=== PATIENT | male | born 1990 | race Caucasian/White ===

== ENCOUNTER 2020-06-18 05:17 | Inpatient (IN) | payer SELFPAY ==
[~2020-06-18] VITALS: Ht 175.3 cm; Wt 62.6 kg
[2020-06-18] MEDS ORDERED: SODIUM CHLORIDE 0.9% 1000ML 1,000 ML IV ONE (05:58)
[2020-06-18] MEDS ORDERED: LORAZEPAM 2 MG/ML 1 ML VIAL ONE ×3 (06:02→06:46)
[2020-06-18 06:25] LABS: BASOPHILS % (AUTO) 0.9 % (0.0-5.0); EOSINOPHILS % (AUTO) 0.2 % (0.0-8.0); HEMATOCRIT 51.4 % (42-54); LYMPHOCYTES % (AUTO) 26.2 % (21.0-51.0); MEAN CORPUSCULAR HEMOGLOBIN 33.6 pg (27.0-33.0); MEAN CORPUSCULAR HGB CONC 33.1 g/dL (32.0-36.0); MEAN CORPUSCULAR VOLUME 101.6 fL (79-99); MONOCYTES % (AUTO) 8.7 % (3.0-13.0); NUCLEATED RED BLOOD CELLS 0.3 % (0.0-0.19); PLATELET COUNT (AUTO) 271 K/uL (130-400); RED BLOOD CELL COUNT(AUTO) 5.06 MIL/uL (4.50-6.20); RED CELL DISTRIBUTION WIDTH 12.3 % (11.0-15.5); WHITE BLOOD COUNT (AUTO) 13.2 K/uL (4.8-10.8)
[2020-06-18 06:27] LABS: APPEARANCE,URINE CLEAR (CLEAR); BILIRUBIN,URINE NEGATIVE (NEGATIVE); COLOR,URINE YELLOW (YELLOW); GLUCOSE, URINE (UA) NEGATIVE (NEGATIVE); KETONES,URINE >=80 mg/dL (NEGATIVE); LEUKOCYTE ESTERASE ,URINE NEGATIVE (NEGATIVE); NITRATE,URINE NEGATIVE (NEGATIVE); OCCULT BLOOD,URINE TRACE-INTACT (NEGATIVE); PH,URINE 5.5 (5.0-8.0); PROTEIN,URINE 30 mg/dL (NEGATIVE); UROBILINOGEN,URINE 0.2 mg/dL (0.2-1.0)
[2020-06-18 06:27] LABS: ABG OXYGEN SATURATION 90.5 % (95.0-99.0); BASE EXCESS,VENOUS BLOOD GAS -25.7 (-2.0-3.0); HCO3,VENOUS BLOOD GAS 6.1 (21.0-28.0); PCO2,VENOUS BLOOD GAS 30 (35-48); PH,VENOUS BLOOD GAS < 6.960 (7.350-7.450)
[2020-06-18 06:36] LABS: AMPHET/METH SCREEN,URINE NEGATIVE (NEGATIVE); BARBITURATE SCREEN, URINE NEGATIVE (NEGATIVE); BENZODIAZEPINES SCREEN,URINE NEGATIVE (NEGATIVE); CANNABINOID SCREEN,URINE NEGATIVE (NEGATIVE); COCAINE SCREEN,URINE NEGATIVE (NEGATIVE); OPIATE SCREEN,URINE NEGATIVE (NEGATIVE); PHENCYCLIDINE SCREEN,URINE NEGATIVE (NEGATIVE)
[2020-06-18 06:43] LABS: ALBUMIN 5.1 g/dL (3.5-5.0); BILIRUBIN,TOTAL 0.8 mg/dL (0.2-1.0); CREATININE 1.5 mg/dL (0.5-1.5); POTASSIUM 3.5 mmol/L (3.5-5.1); TOTAL PROTEIN, SERUM 9.7 g/dL (6.0-8.3)
[2020-06-18 07:26] LABS: BACTERIA,URINE Few /HPF (None Seen); MUCUS,URINE Few LPF (None Seen); RBC,URINE 0-1 /HPF (0-1); SQUAMOUS EPITHELIAL CELL,UR Rare /HPF (0-2)
[2020-06-18 07:27] LABS: HYALINE CASTS, URINE 0-1 /LPF (0-1 /LPF)
[2020-06-18] MEDS ORDERED: LORAZEPAM 2 MG/ML 1 ML VIAL IVP PRN ×2 (07:45)
[2020-06-18] MEDS: LACTATED RINGERS 1000ML 1,000 ML IV SCH ×3 (07:45→20:36)
[2020-06-18] MEDS ORDERED: LACTATED RINGERS 1000ML 1,000 ML IV ONE ×2 (08:51→10:43)
[2020-06-18] MEDS ORDERED: DIAZEPAM 5 MG/ML 2 ML SYG ONE ×2 (09:52→09:56)
[2020-06-18] MEDS ORDERED: THIAMINE HCL 100 MG/ML 2ML VIAL IVP SCH (10:30)
[2020-06-18] MEDS: SERTRALINE HCL 50 MG TABLET PO SCH (10:30)
[2020-06-18] MEDS: CLONIDINE HCL 0.1 MG TABLET PO SCH ×3 (10:30→22:30)
[2020-06-18] MEDS: DIAZEPAM 5 MG/ML 2 ML SYG IVP SCH ×3 (12:00→23:44)
[2020-06-18 12:06] LABS: CREATINE KINASE, TOTAL 257 U/L (21-232); THYROID STIMULATING HORMONE 2.38 uIU/mL (0.36-3.74)
[2020-06-18 12:07] LABS: SALICYLATE < 2.8 mg/dL (2.8-20.0)
[2020-06-18] MEDS ORDERED: SERTRALINE HCL 50 MG TABLET ONE (12:25)
--- NOTE | 2020-06-18 13:00 | NUR ---
ARRIVAL TO ROOM DPT 15 PT IS AAOX3 DENIES CP DENIES SOB DENIES NV NO COMPLAINTS. ARRIVED WITH ORDERS. CALL LIGHT WITHIN REACH.
[2020-06-18] MEDS ORDERED: ALPR0.5T8 PO (14:07)
[2020-06-18] MEDS ORDERED: SERT100T PO (14:07)
[2020-06-18 15:00] VITALS: BP 134/96
--- NOTE | 2020-06-18 17:26 | NUR ---
STATUS PT IS AAOX3 NO COMPLAINTS AT THIS TIME. DENIES PAIN DENIES TREMORS. CALL LIGHT WITHIN REACH.
[2020-06-18 20:00] VITALS: BP 126/82
[2020-06-19] VITALS (7 sets, daily range): BP systolic 93–136; BP diastolic 54–95
[2020-06-19 03:36] LABS: ABG BASE EXCESS 0.2 mmol/L (-2.0-3.0); ABG HCO3 24.7 mmol/L (21.0-28.0); ABG OXYGEN SATURATION 97.2 % (95.0-99.0); ABG PCO2 40 mmHg (35-48)
[2020-06-19 04:27] LABS: HEMATOCRIT 38.5 % (42-54); MEAN CORPUSCULAR HEMOGLOBIN 33.8 pg (27.0-33.0); MEAN CORPUSCULAR HGB CONC 35.1 g/dL (32.0-36.0); MEAN CORPUSCULAR VOLUME 96.5 fL (79-99); RED BLOOD CELL COUNT(AUTO) 3.99 MIL/uL (4.50-6.20); RED CELL DISTRIBUTION WIDTH 12.3 % (11.0-15.5)
[2020-06-19] MEDS: CLONIDINE HCL 0.1 MG TABLET PO SCH ×4 (04:30→21:12)
[2020-06-19] MEDS: DIAZEPAM 5 MG/ML 2 ML SYG IVP SCH ×3 (06:29→18:10)
[2020-06-19 07:07] LABS: CREATINE KINASE, TOTAL 357 U/L (21-232); MYOGLOBIN 68 ng/mL (10-92); PHOSPHORUS 3.2 mg/dL (2.5-4.9); TROPONIN I < 0.04 ng/mL (0.00-0.06)
[2020-06-19 07:23] LABS: SALICYLATE < 2.8 mg/dL (2.8-20.0)
[2020-06-19] MEDS: M.V.I. IV [ADULT] 10 ML, FOLIC ACID 1 MG, THIAMINE HCL 100 MG in SODIUM CHLORIDE 0.9% 1... IV SCH (09:00)
[2020-06-19] MEDS: ENOXAPARIN SODIUM 40 MG/0.4 ML SYRINGE SQ SCH (09:27)
[2020-06-19] MEDS: SERTRALINE HCL 50 MG TABLET PO SCH (09:27)
--- NOTE | 2020-06-19 12:44 | NUR ---
cm note pt resides at home alone, state is independent with ambulation and adls, pt drives. states he does take medication for anxiety as ordered by his MD dr Cyrus osuna. states feels safe to return back home at time of dc. states no dc needs. provided next of patrice benton # who resides in [facility], Fanny Levine [phone]. Addendum: 06/19/20 at 1249 by RIMA YOUNGER Amended: Links added.
[2020-06-19] MEDS ORDERED: POTASSIUM CHLORIDE 20MEQ/100ML 100 ML IV PRN (13:45)
[2020-06-19] MEDS ORDERED: POTASSIUM CHLORIDE 10% ELIXIR 20 MEQ/15 ML UDCUP PO PRN (13:45)
[2020-06-19] MEDS ORDERED: LIDOCAINE HCL-MPF 1% 2ML VIAL IV PRN (13:45)
[2020-06-19] MEDS ORDERED: HYDROCODONE/ACETAMINOPHEN 5/325 MG TAB PO PRN (13:45)
[2020-06-19] MEDS: CYPROHEPTADINE HCL 4 MG TAB PO SCH ×2 (14:32→21:12)
[2020-06-19] MEDS: LACTATED RINGERS 1000ML 1,000 ML IV SCH ×2 (14:32→23:45)
[2020-06-19] MEDS: TOPIRAMATE 25 MG TABLET PO SCH (21:12)
[2020-06-20] MEDS: DIAZEPAM 5 MG/ML 2 ML SYG IVP SCH ×4 (03:04→18:27)
[2020-06-20] MEDS: CYPROHEPTADINE HCL 4 MG TAB PO SCH ×4 (03:04→21:43)
[2020-06-20 03:32] VITALS: BP 94/57
[2020-06-20 04:11] LABS: MEAN CORPUSCULAR HEMOGLOBIN 33.7 pg (27.0-33.0); MEAN CORPUSCULAR HGB CONC 34.9 g/dL (32.0-36.0); MEAN CORPUSCULAR VOLUME 96.6 fL (79-99); RED BLOOD CELL COUNT(AUTO) 3.83 MIL/uL (4.50-6.20); RED CELL DISTRIBUTION WIDTH 12.1 % (11.0-15.5); WHITE BLOOD COUNT (AUTO) 3.8 K/uL (4.8-10.8)
[2020-06-20] MEDS: CLONIDINE HCL 0.1 MG TABLET PO SCH ×4 (04:30→21:44)
[2020-06-20 05:00] LABS: ALANINE AMINOTRANSFERASE 28 U/L (12-78); ASPARTATE AMINOTRANSFERASE 40 U/L (10-37); BILIRUBIN,TOTAL 0.7 mg/dL (0.2-1.0); CARBON DIOXIDE 28 mmol/L (21-32); CHLORIDE 105 mmol/L (101-111); CREATININE 0.6 mg/dL (0.5-1.5); GLOMERULAR FILTR. RATE CALC 167 mL/min (>60); GLUCOSE,RANDOM 92 mg/dL (70-105); MYOGLOBIN 318 ng/mL (10-92); PHOSPHORUS 3.9 mg/dL (2.5-4.9); POTASSIUM 3.2 mmol/L (3.5-5.1); SODIUM SERUM 141 mmol/L (136-145); TOTAL PROTEIN, SERUM 6.2 g/dL (6.0-8.3); TROPONIN I < 0.04 ng/mL (0.00-0.06); UREA NITROGEN, BLOOD 4 mg/dL (7-18)
[2020-06-20 05:13] LABS: CREATINE KINASE, TOTAL 736 U/L (21-232)
[2020-06-20] MEDS: LACTATED RINGERS 1000ML 1,000 ML IV SCH ×2 (06:25→13:05)
[2020-06-20 08:13] VITALS: BP 108/79
[2020-06-20] MEDS: TOPIRAMATE 25 MG TABLET PO SCH ×2 (09:31→21:43)
[2020-06-20] MEDS: ENOXAPARIN SODIUM 40 MG/0.4 ML SYRINGE SQ SCH (09:33)
[2020-06-20] MEDS: POTASSIUM CHLORIDE 20 MEQ ERTAB PO PRN ×3 (09:35→18:24)
[2020-06-20] MEDS: M.V.I. IV [ADULT] 10 ML, FOLIC ACID 1 MG, THIAMINE HCL 100 MG in SODIUM CHLORIDE 0.9% 1... IV SCH (10:19)
[2020-06-20 12:04] VITALS: BP 123/90
[2020-06-20 16:22] VITALS: BP 118/81
[2020-06-20 20:00] VITALS: BP 119/76
[2020-06-21 00:34] VITALS: BP 113/80
[2020-06-21] MEDS: DIAZEPAM 5 MG/ML 2 ML SYG IVP SCH ×3 (00:34→07:38)
[2020-06-21] MEDS: LACTATED RINGERS 1000ML 1,000 ML IV SCH ×4 (00:34→15:45)
[2020-06-21] MEDS: CYPROHEPTADINE HCL 4 MG TAB PO SCH ×4 (01:45→19:45)
[2020-06-21 04:36] LABS: BASOPHILS % (AUTO) 0.6 % (0.0-5.0); EOSINOPHILS % (AUTO) 7.8 % (0.0-8.0); HEMATOCRIT 38.3 % (42-54); LYMPHOCYTES % (AUTO) 40.7 % (21.0-51.0); MEAN CORPUSCULAR HEMOGLOBIN 33.5 pg (27.0-33.0); MEAN CORPUSCULAR HGB CONC 33.9 g/dL (32.0-36.0); MEAN CORPUSCULAR VOLUME 98.7 fL (79-99); MONOCYTES % (AUTO) 10.6 % (3.0-13.0); NEUTROPHILS % (AUTO) 40.1 % (40.0-77.0); PLATELET COUNT (AUTO) 154 K/uL (130-400); RED BLOOD CELL COUNT(AUTO) 3.88 MIL/uL (4.50-6.20); RED CELL DISTRIBUTION WIDTH 11.9 % (11.0-15.5); WHITE BLOOD COUNT (AUTO) 4.6 K/uL (4.8-10.8)
[2020-06-21 05:19] LABS: CREATININE 0.7 mg/dL (0.5-1.5); PHOSPHORUS 4.9 mg/dL (2.5-4.9); POTASSIUM 3.9 mmol/L (3.5-5.1)
[2020-06-21] MEDS: CLONIDINE HCL 0.1 MG TABLET PO SCH ×4 (05:37→21:06)
[2020-06-21 06:41] VITALS: BP 122/81
--- NOTE | 2020-06-21 07:30 | NUR ---
ASSESSMENT ENCOUNTERED PT A&OX3, CALM COOPERATIVE AND DOES NOT APPEAR TO BE IN ANY DISTRESS NOR ANY NEURO DEFICITS PRESENT. PT DENIES PAIN, SOB, NAUSEA. PT IS AMBULATORY, GAIT STEADY AND STRONG WITH STAND BY ASSIST. PT IS ABLE TO TOLERATE FOODS, FLUIDS AND MEDICATION WITH NO THROAT CLEARING OR COUGH. CALL LIGHT WITHIN REACH.
[2020-06-21 07:40] VITALS: BP 128/90
[2020-06-21] MEDS: M.V.I. IV [ADULT] 10 ML, FOLIC ACID 1 MG, THIAMINE HCL 100 MG in SODIUM CHLORIDE 0.9% 1... IV SCH (09:00)
[2020-06-21] MEDS ORDERED: DIAZEPAM 5 MG TABLET PO SCH (12:00)
[2020-06-21 12:06] VITALS: BP 129/91
[2020-06-21] MEDS: TOPIRAMATE 25 MG TABLET PO SCH ×2 (12:08→21:07)
[2020-06-21] MEDS: ENOXAPARIN SODIUM 40 MG/0.4 ML SYRINGE SQ SCH (12:10)
[2020-06-21 15:55] VITALS: BP 115/75
[2020-06-21 20:32] VITALS: BP 109/80
[2020-06-21] MEDS: DIAZEPAM 5 MG TABLET PO SCH (21:04)
[2020-06-22] MEDS: CLONIDINE HCL 0.1 MG TABLET PO SCH ×4 (00:21→20:49)
[2020-06-22 00:27] VITALS: BP 124/89
[2020-06-22] MEDS: CYPROHEPTADINE HCL 4 MG TAB PO SCH ×4 (01:45→20:50)
[2020-06-22] MEDS: LACTATED RINGERS 1000ML 1,000 ML IV SCH ×4 (01:58→18:37)
[2020-06-22 03:24] LABS: HEMATOCRIT 38.2 % (42-54); MEAN CORPUSCULAR HEMOGLOBIN 33.8 pg (27.0-33.0); MEAN CORPUSCULAR HGB CONC 34.6 g/dL (32.0-36.0); MEAN CORPUSCULAR VOLUME 97.9 fL (79-99); RED BLOOD CELL COUNT(AUTO) 3.9 MIL/uL (4.50-6.20); RED CELL DISTRIBUTION WIDTH 12.1 % (11.0-15.5); WHITE BLOOD COUNT (AUTO) 5.6 K/uL (4.8-10.8)
[2020-06-22 03:39] VITALS: BP 114/74
[2020-06-22 04:04] LABS: CREATININE 0.7 mg/dL (0.5-1.5); MAGNESIUM 1.7 mg/dL (1.80-2.40); PHOSPHORUS 4.9 mg/dL (2.5-4.9); POTASSIUM 3.5 mmol/L (3.5-5.1)
[2020-06-22] MEDS: POTASSIUM CHLORIDE 20 MEQ ERTAB PO PRN (05:57)
[2020-06-22 08:00] VITALS: BP 114/78
[2020-06-22] MEDS: M.V.I. IV [ADULT] 10 ML, FOLIC ACID 1 MG, THIAMINE HCL 100 MG in SODIUM CHLORIDE 0.9% 1... IV SCH (09:00)
[2020-06-22] MEDS: TOPIRAMATE 25 MG TABLET PO SCH ×2 (10:01→20:50)
[2020-06-22] MEDS: DIAZEPAM 5 MG TABLET PO SCH ×2 (10:02→20:51)
[2020-06-22] MEDS: ENOXAPARIN SODIUM 40 MG/0.4 ML SYRINGE SQ SCH (10:03)
[2020-06-22 11:50] VITALS: BP 112/80
[2020-06-22 16:32] VITALS: BP 116/67
[2020-06-22 20:45] VITALS: BP 107/69
[2020-06-23] MEDS: LACTATED RINGERS 1000ML 1,000 ML IV SCH ×2 (00:09→05:38)
[2020-06-23 00:11] VITALS: BP 94/58
[2020-06-23] MEDS: CYPROHEPTADINE HCL 4 MG TAB PO SCH ×2 (02:19→08:47)
[2020-06-23 03:15] LABS: HEMATOCRIT 38.3 % (42-54); MEAN CORPUSCULAR HEMOGLOBIN 33.6 pg (27.0-33.0); MEAN CORPUSCULAR HGB CONC 33.9 g/dL (32.0-36.0); RED BLOOD CELL COUNT(AUTO) 3.87 MIL/uL (4.50-6.20); RED CELL DISTRIBUTION WIDTH 12.1 % (11.0-15.5); WHITE BLOOD COUNT (AUTO) 5.6 K/uL (4.8-10.8)
[2020-06-23 03:43] LABS: CREATININE 0.9 mg/dL (0.5-1.5); POTASSIUM 3.6 mmol/L (3.5-5.1)
[2020-06-23 03:55] VITALS: BP 110/73
[2020-06-23] MEDS: CLONIDINE HCL 0.1 MG TABLET PO SCH (04:02)
[2020-06-23 08:26] VITALS: BP 118/70
--- NOTE | 2020-06-23 08:30 | NUR ---
AM ASSESSMENT PT AWAKE, ALERT, AND ORIENTED. DENIES CHEST PAIN, DENIES FEELING FAINT, NO ANXIETY OR DISTRESS. UP AD JAY, NO ANXIETY OR DISTRESS NOTED.
[2020-06-23] MEDS: DIAZEPAM 5 MG TABLET PO SCH (08:47)
[2020-06-23] MEDS: ENOXAPARIN SODIUM 40 MG/0.4 ML SYRINGE SQ SCH (08:47)
[2020-06-23] MEDS: TOPIRAMATE 25 MG TABLET PO SCH (08:47)
[2020-06-23] MEDS: POTASSIUM CHLORIDE 20 MEQ ERTAB PO PRN (08:51)
[2020-06-23] MEDS ORDERED: DIAZ5TAB4 PO (10:17)
[2020-06-23 11:40] VITALS: BP 108/70
--- NOTE | 2020-06-23 12:15 | NUR ---
[place] [employer] CALL RECEIVED FROM [place] TROPICAL SCREENER; SCREEN TO BE DONE WITH PATIENT PER SCREENER PER PROTOCOL AT THIS TIME FOR OUTPATIENT APPOINTMENT.
--- NOTE | 2020-06-23 14:36 | NUR ---
DC HOME INSTRUCTIONS PT AWAKE, ALERT, AND ORIENTED. DC HOME INSTRUCTIONS GIVEN TO PT, ALL QUESTIONS ANSWERED, RX GIVEN TO PT. AWARE NEEDS TO F/U WITH DR Kailey STILL WITH [facility]. PT MADE AWARE TO CALL 911 IF NEEDING TO RETURN TO ER.
== END 2020-06-23 15:15 | disposition home or self-care (01) | DRG 897 ==
LOC: EDH 05:17 → OBSVTOIN 05:18 → EDHIP 05:18 → DAHIP 14:21
PROVIDERS: ADMIT Internal Medicine Critical Care Medicine; ATTEND Internal Medicine Critical Care Medicine
DX: F10.129 Alcohol abuse with intoxication, unspecified (principal); E87.2 Acidosis; M62.82 Rhabdomyolysis; F13.239 Sedative, hypnotic or anxiolytic dependence with withdrawal, unspecified; E86.0 Dehydration; F32.9 Major depressive disorder, single episode, unspecified; G43.909 Migraine, unspecified, not intractable, without status migrainosus; F41.1 Generalized anxiety disorder; Z79.899 Other long term (current) drug therapy; F41.8 Other specified anxiety disorders
CPT/HCPCS: 36415; 36600; 70450; 71045; 80048; 80053; 80305; 81001; 82550; 82728; 82803; 83605; 83735; 83874; 84100; 84443; 84484; 85025; 85027; 86140; 87088; 93005; G0378; G0481; J1650; J2060; J3360; J3411; J3490; J7030; J7120

== ENCOUNTER 2022-09-24 00:55 | Emergency (ER) | payer OTHER ==
[~2022-09-24] VITALS: Ht 175.3 cm; Wt 63.5 kg
[~2022-09-24 00:55] MED LIST: ALPR0.5T8 PO; DIAZ5TAB4 PO
[2022-09-24 02:17] LABS: BASOPHILS % (AUTO) 0.3 % (0.0-5.0); LYMPHOCYTES % (AUTO) 16.7 % (21.0-51.0); MEAN CORPUSCULAR HEMOGLOBIN 32.4 pg (27.0-33.0); MEAN CORPUSCULAR HGB CONC 37.8 g/dL (32.0-36.0); MEAN CORPUSCULAR VOLUME 85.8 fL (79-99); MONOCYTES % (AUTO) 9.1 % (3.0-13.0); NEUTROPHILS % (AUTO) 73.6 % (40.0-77.0); PLATELET COUNT (AUTO) 264 K/uL (130-400); RED BLOOD CELL COUNT(AUTO) 4.66 MIL/uL (4.50-6.20); RED CELL DISTRIBUTION WIDTH 12.1 % (11.0-15.5); WHITE BLOOD COUNT (AUTO) 14.9 K/uL (4.8-10.8)
[2022-09-24 02:30] LABS: ALBUMIN 4.7 g/dL (3.5-5.0); CREATININE 1.4 mg/dL (0.5-1.5); MAGNESIUM 1.4 mg/dL (1.80-2.40); POTASSIUM 4.1 mmol/L (3.5-5.1); TOTAL PROTEIN, SERUM 8.7 g/dL (6.0-8.3)
[2022-09-24] MEDS ORDERED: ONDANSETRON 4MG INJ IVP ONE (02:30)
[2022-09-24] MEDS ORDERED: 0.9%NACL 1000ML 1,000 ML IV ONE (02:30)
[2022-09-24] MEDS ORDERED: FAMOTIDINE 20MG VIAL IV ONE (02:30)
[2022-09-24] MEDS ORDERED: LORAZEPAM 2 MG/ML 1 ML VIAL IVP ONE ×2 (02:30→06:00)
[2022-09-24 02:58] LABS: ABG OXYGEN SATURATION 82.1 % (95.0-99.0); BASE EXCESS,VENOUS BLOOD GAS -0.8 (-2.0-3.0); HCO3,VENOUS BLOOD GAS 21.4 (21.0-28.0); PCO2,VENOUS BLOOD GAS 29 (35-48); PH,VENOUS BLOOD GAS 7.481 (7.350-7.450)
[2022-09-24] MEDS ORDERED: MAGNESIUM OXIDE 400 MG TABLET PO ONE (03:17)
[2022-09-24] MEDS ORDERED: MAGNESIUM OXIDE 400 MG TABLET PO SCH ×2 (03:30→06:30)
[2022-09-24 03:48] LABS: APPEARANCE,URINE CLEAR (CLEAR); BILIRUBIN,URINE NEGATIVE (NEGATIVE); COLOR,URINE LIGHT-YELLOW (YELLOW); GLUCOSE, URINE (UA) NEGATIVE (NEGATIVE); KETONES,URINE 5 mg/dL (NEGATIVE); LEUKOCYTE ESTERASE ,URINE NEGATIVE Leu/uL (NEGATIVE); NITRATE,URINE NEGATIVE (NEGATIVE); OCCULT BLOOD,URINE SMALL (NEGATIVE); PH,URINE 6.5 (5.0-8.0); PROTEIN,URINE 30 mg/dL (NEGATIVE); UROBILINOGEN,URINE 0.2 mg/dL (0.2-1.0)
[2022-09-24 04:10] LABS: RBC,URINE 0-1 /HPF (0-1); WBC,URINE 0-1 /HPF (0-1)
[2022-09-24 05:03] LABS: AMPHET/METH SCREEN,URINE NEGATIVE (NEGATIVE); BARBITURATE SCREEN, URINE NEGATIVE (NEGATIVE); BENZODIAZEPINES SCREEN,URINE NEGATIVE (NEGATIVE); CANNABINOID SCREEN,URINE NEGATIVE (NEGATIVE); COCAINE SCREEN,URINE NEGATIVE (NEGATIVE); OPIATE SCREEN,URINE NEGATIVE (NEGATIVE); PHENCYCLIDINE SCREEN,URINE NEGATIVE (NEGATIVE)
[2022-09-24 05:49] LABS: POTASSIUM 3.9 mmol/L (3.5-5.1)
[2022-09-24 05:58] VITALS: BP 121/79
[2022-09-24] MEDS ORDERED: CHLORDIAZEPOXIDE HCL 25 MG CAP PO ONE (06:00)
[2022-09-24] MEDS ORDERED: CHLORDIAZEPOXIDE HCL 25 MG CAP ONE (06:03)
[2022-09-24] MEDS ORDERED: CHLO10CA7 PO (06:09)
[2022-09-24] MEDS ORDERED: LORAZEPAM 2 MG/ML 1 ML VIAL IVP SCH (07:00)
== END 2022-09-24 06:55 | disposition home or self-care (01) ==
LOC: EDH 00:55
DX: F41.9 Anxiety disorder, unspecified (principal); F10.239 Alcohol dependence with withdrawal, unspecified; E87.1 Hypo-osmolality and hyponatremia; E83.42 Hypomagnesemia; R73.9 Hyperglycemia, unspecified; F32.A Depression, unspecified; Z79.899 Other long term (current) drug therapy; Y90.9 Presence of alcohol in blood, level not specified
CPT/HCPCS: 99284; 96374; 96375; 96361; 83735; 80053; 82803; 80305; 83690; 85025; 82010; 36415; 36600; 81001; 80048; J3490; J7030; J2405; J2060 ×2